=== PATIENT | female | born 2000 | race African-American/Black ===

== ENCOUNTER 2024-05-06 14:50 | Emergency (ER) | payer SELFPAY ==
[2024-05-06 14:51] VITALS: BP 107/69; PULSE 84; RESP 18; TEMP 36.4; O2SAT 100
--- NOTE | 2024-05-06 14:57 | ED.RN ---
PD dropped pt off in wheelchair, pt is sitting upright in the chair. Pt not responding to commands or answering questions. PD states pt is moving freely on her own on security cameras, but will become unresponsive when PD in room with her. pt is peeing self. Unknown past medical hx or allergies. This RN instructed medic to obtain blood sugar once pt is in room to assess for hypoglycemia.
[2024-05-06 15:02] VITALS: BMI 15.5
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
[2024-05-06 15:19] LABS: Bedside Glucose 72 mg/dL (74-106)
[2024-05-06 15:25] LABS: Absolute Lymphocyte Count 1.76 X10^3/uL (0.83-4.51); Absolute Neutrophil Count 3.5 X10^3/uL (2.0-7.7); Basophil# 0.04 X10^3/uL; Basophil% 0.7 % (0-1); Eosinophils% 1.7 % (0-5); Hematocrit 45.6 % (37-47); Hemoglobin 14.6 g/dL (12.0-15.0); Lymphocyte # 1.76 X10^3/ul (0.83-4.51); Lymphocyte % 30.4 % (19-41); Mean Corpuscular Hgb 27.4 pg (27.0-32.0); Mean Corpuscular Volume 85.6 fL (81-99); Mean Platelet Vol. 10.3 fl (6.2-12.0); Monocyte# 0.36 X10^3/uL; Monocyte% 6.2 % (0-10); NRBC Flagged by Analyzer 0 % (0-5); Neutrophil # 3.51 X10^3/uL (2.7-7.7); Neutrophil % 60.8 % (47-70); Platelet Count 281 K/mm3 (150-450); RBC Distribution Width CV 13.9 % (11.6-14.6); RBC Distribution Width SD 43.4 fl (35.1-43.9); Red Blood Count 5.33 M/mm3 (4.2-5.4); White Blood Count 5.8 K/mm3 (4.4-11.0)
[2024-05-06 15:43] LABS: Anion Gap 9 (5-15); BUN 8 mg/dL (7-18); BUN/Creat Ratio 10.9 RATIO (10-20); Calcium,Total 9.7 mg/dL (8.5-10.1); Chloride 105 mmol/L (98-107); Creatinine, Serum 0.74 mg/dL (0.55-1.02); EST Glomerular Filtration Rate 105 mL/min (>60); Est Glom Filt Rate - Afr Amer 127 mL/min (>60); Estimated Creatinine Clearance 82.96 ml/min; Glucose 82 mg/dL (74-106); Potassium 3.6 mmol/L (3.5-5.1); Sodium Level 139 mmol/L (136-145)
[2024-05-06] MEDS: Ziprasidone IM 20 MG/ML VIAL IM (16:02)
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
[2024-05-06 16:08] LABS: Alcohol, Blood (Medical)-Serum < 3.0 mg/dL
[2024-05-06 16:11] LABS: Internal QC Validated? YES +Cl - CLEAR BKGD; Pregnancy, Serum, hCG Quali. NEGATIVE Negative
[2024-05-06 17:00] VITALS: BP 105/69; PULSE 99; RESP 16; O2SAT 98
[2024-05-06] MEDS: Ondansetron 4 MG/2 ML Vial IV (17:21)
[2024-05-06] MEDS: 0.9% Normal Saline (1000mL) 1,000 ML 999 ML IV (17:22)
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
[2024-05-06 19:00] VITALS: BP 107/78; PULSE 72; RESP 20; O2SAT 98
[2024-05-06 20:30] LABS: Bacteria 0 SEEN /hpf (None Seen); Mucous, Urine 0 SEEN /hpf (<or=2+); Red Blood Cells-Urine 0 SEEN /hpf (0-5); Squamous Epithelial Cells - UA 0 SEEN /hpf (5-10); White Blood Cells 0 SEEN /hpf (0-5)
[2024-05-06 20:34] LABS: Color, Urine Yellow (Yellow); Glucose, Dipstick Normal (Normal); Ketone-Dipstick 50 mg/dl (Negative); Leukocyte Esterase-Dipstick Negative /ul (Negative); Nitrite-Dipstick Negative (Negative); Occult Blood-Urine Negative /ul (Negative); Protein-Dipstick Negative (Negative); Urine Bilirubin Dipstick Negative (Negative); Urine Clarity Clear (Clear); Urine Urobilinogen Normal (Normal)
[2024-05-06 20:46] LABS: Amphetamine Urine VISTA NEGATIVE (<1000 ng/mL); Barbiturate Urine VISTA NEGATIVE (< 200 ng/mL); Benzodiazepine Urine VISTA NEGATIVE (< 200 ng/mL); Cocaine Urine VISTA NEGATIVE (< 300 ng/mL); Ecstacy Urine VISTA NEGATIVE (< 500 ng/mL); Methadone Urine VISTA NEGATIVE (< 300 ng/mL); PCP Urine VISTA NEGATIVE (< 25 ng/mL); THC Urine VISTA NEGATIVE (< 50 ng/mL); Vista UDS pH Range 6
[2024-05-06 21:00] VITALS: BP 100/65; PULSE 72; RESP 14; O2SAT 99
--- NOTE | 2024-05-07 00:31 | ED.RN ---
Patient out at nurses station and asking this RN for AMA paperwork. This RN re-educated patient that she is pink slipped and she cannot sign out AMA. Pt asked this RN why she was pink slipped and this RN read the pink slip to her, in which patient became defensive and stated that she did not make suicidal comments earlier because she wasn't talking to anyone when she first came in. Patient then asked again for an AMA form and this RN explained again that she would not be able to leave AMA due to the pink slip. Patient proceeded to use the restroom and when coming back asked for her 3 day paperwork to sign. Informed patient that we do not have that paperwork and crisis is currently working on placement at this time.
--- NOTE | 2024-05-07 01:48 | ED.RN ---
Patients mother arrives to department very angry and demanding an update on patient. This RN got permission from patient to talk about her care to her mother. Mother demands to see documentation that is holding her daughter here, patient has copies of pink slip and they were provided to mother. Mother remains very angry, security called to triage where mother and this RN are speaking. Mother has multiple questions regarding what happened with patient prior to her getting her here, this RN referred her to ask [employer] [facility]HAEL and/or Louis whitman. Mother asks to speak with doctor on, Dr Haas spoke with mother out in triage for approx 10 minutes. Mother then asks to come back and see patient. She was let back, she immediately starts demanding that patient get food and that we are not taking care of her. This RN reminds her that all she needs to do is ask if she is hungry or thirsty and that she has been checked on multiple times without complaint. Security remains in department.
[2024-05-07 05:00] VITALS: BP 94/47; PULSE 88; RESP 14; O2SAT 98
--- NOTE | 2024-05-07 10:36 | ED.RN ---
Per Crisis, they have called [facility] 3 times with no response. They are now waiting on [facility] to call back, approve placement and tell them were to send her.
--- NOTE | 2024-05-07 11:05 | ED.RN ---
TAN IVERSON HAS FUNDING, BUT WANTS TO WAIT FOR REFERRAL TO [facility] TO COME BACK
--- NOTE | 2024-05-07 11:10 | ED.RN ---
Per Darleen at crisis patient will be referred to [facility]. [facility] has no date and time that a bed will be available. Mattie PHELPS also aware.
--- NOTE | 2024-05-07 11:24 | CASEMGMT ---
Social Work Spoke with Damion Robbins RN who reports information has been gleaned from crisis indicates recommendation for inpatient psychiatric hospitalization. Spoke with Darleen from [facility] who reports patient is self pay status, so working with [facility] on funding for placement. Per Darleen, [facility] does have indigent funding available, but is asking for referral to [facility] which is pending. Plan: Pending inpatient mental health hospitalization. -KENYATTA Crabtree
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
[2024-05-07 13:00] VITALS: BP 125/63; PULSE 91; RESP 18; TEMP 36.8; O2SAT 99
--- NOTE | 2024-05-07 13:00 | ED.RN ---
This RN enters patient room to see if patient was finished with her lunch tray. pt's mother tells this RN she needs a pen to fill out this paper since she doesn't have insurance and something to write on. this RN agrees to grab a pen and clipboard for patient. Mother then asks this rn if she can be notified of transportation because last time they lied to us and she got stuck paying for the transportation. this rn lets mother know that when possible, this rn will ask social work or crisis on possibilites for funding to cover transport. mother states understanding and states ok good, she can't afford another $4,000 bill.
--- NOTE | 2024-05-07 14:28 | ED.RN ---
Crisis center called to ask about possibly covering the cost of transport for the patient to [place]. health worker states that this rn would have to call [facility] since they are providing the funding. this rn obtains phone number from crisis center and phone call made. [phone]- [facility] crisis center worker calls back and informs this rn that she is unsure about funding for transportation since pt is currently in [facility] and not [facility]. health worker states that when the pt is considered indigent in [facility], [facility] usually covers the cost of transport with a private fund. she is not sure how this will work in [facility]. pts mother to be updated when she returns to the hospital.
--- NOTE | 2024-05-07 14:30 | CM.ED ---
Social Work This technical writer and editor, along with Ame Acharya, back to patient's room to provide Patient Advocate contact information. Patient sitting up in bed and working on financial sales assistant application for hospital. Asked patient if patient would like the information, or whether patient would like this technical writer and editor to give information to patient's mother Linda. Patient directed information to be given to Linda. Linda observed telling patient that patient should call. Patient made comment that does not have a phone to use. Linda informed patient that patient can use the phone if patient wants to, though patient did not ask or voice interest to use a phone to call the advocate. This technical writer and editor inquired whether patient would like assist with medicaid application through [facility] representative phlebotomy services. Patient initially indicated that did not know, and then asked what the repercussions would be if did not apply for Medicaid or for the hospital assistance program. Linda made comment about patient being a full-time college student with limited income. Explained it is patient's right to apply or not, but applying could offer support for bills. Linda informed patient that bills could go to [employer], and this won't be on patient's credit bureau. Linda also made comment about how [employer] is giving others money, so patient should take advantage too. After some thought patient reported that would talk with [facility] [employer] if available tomorrow, but not at the detriment of holding up transfer to next hospital. This technical writer and editor did attempt to engage patient in conversation, as Linda made comments about patient being in college and knowing different languages (multiple languages due to family being overseas for the ). When this technical writer and editor asked patient what patient is majoring in the patient stated no. This technical writer and editor clarified that does this mean patient does not have a major. Patient looked at Linda, and Linda made comment to patient that okay to tell SW as it is not like SW would be calling [employer]. This technical writer and editor confirmed would not be calling the [employer]. Patient made comment don't trust you, so did not answer question about major. Gently let patient know that it is okay to say that don't want to talk, or not want to answer rather than saying no when asked something that patient does know. Note, during this interaction, Linda initiated conversation back to attempt at urine catheter for patient yesterday, as well as comments about knowing when patient is being recorded or not and that video footage will be disappearing. Linda commented that as a security police it is common to lie when recording is happening. After addressing the patient advocate and Medicaid application, no other additional needs identified to be addressed at this time with patient. Patient did give this technical writer and editor completed hospital assistance application which this technical writer and editor handed off to Lennie FERNANDO. Secure message to [facility] Patient Advocate regarding this patient and to check in with patient if still here during Advocate's working hours. Secure message to Mi at [facility] [employer] regarding assistance for Medicaid application. This technical writer and editor checked in with nursing and still waiting on bed availability at [facility]. This technical writer and editor obtained number for [facility] in [place], , as this technical writer and editor looking to see if any possible alternative placement could be secured for patient, rather than unknown wait time with [facility]. Plan: Pending inpatient mental health placement. -KENYATTA Crabtree
--- NOTE | 2024-05-07 17:40 | CM.ED ---
Social Work Called [facility] at [phone] and left message with answering service to call this contract writer back. Received call back from Suha Torres who was able to answer and clarify this contract writer's questions. Suha reports [facility] gave authorization for referral to [facility], and that if patient is not placed at [facility] by Wednesday05-08-2024 then [facility] would re-revaluate whether an alternate hospital could be looked at, depending on what the outcome of the referral to [facility] shows. As far as covering cost of transportation, Suha was not aware about covering cost of transport. Suha reports Seferino from [facility] in [place] was to send referral over to [facility]. Plan: Pending referral at [facility] though destination could be under reconsideration tomorrow. -KENYATTA Crabtree
--- NOTE | 2024-05-07 20:55 | ED.RN ---
this rn's presence requested in pt's room to talk to mother. she is requesting all written records and the [id number] paperwork of everything that's been done. also requested the name of the charge nurse upon pt's arrival and the name of the nurses that straight cath'd her on the day of arrival. all questions answered. advised pt's mother that I was unsure of the policy about what written documentation we are able to provide vs medical record, but I would get back to her when I had that information.
[2024-05-07 21:00] VITALS: BP 106/73; PULSE 97; RESP 18; O2SAT 96
--- NOTE | 2024-05-07 21:14 | ED.RN ---
pt's mother now aware that all written records must be obtained through medical records.
--- NOTE | 2024-05-07 22:17 | CM.ED ---
Social Work Spoke with Darleen Heredia at [facility] Crisis department about 24 hour update assessment. Updated Darleen that this handbook writer has been into the room today to speak with patient and mother, listening to concerns, and offering resources. Updated Darleen that patient not communicating much during interactions with social worker palliative care today, expressed not trusting this handbook writer, and the mother has done most of the talking. Plan: Pending inpatient hospitalization. Crisis will be back in for daily update/determination of need for continued plan. -KENYATTA Crabtree
--- NOTE | 2024-05-07 22:31 | ED.RN ---
2114 offered pt and mother beverages and/or snack. both refused at this time. mother asked questions re: law enforcement protocols and this rn advised her that I did not have knowledge of their procedures. 2199 offered to provide pt with bath wipes to clean up. pt refused at this time.
--- NOTE | 2024-05-07 23:03 | ED.RN ---
Crisis at bedside for 24 hour re-evaluation
--- NOTE | 2024-05-08 01:18 | ED.RN ---
mother arrives at bedside to speak with crisis
[2024-05-08 02:14] VITALS: BP 110/76; PULSE 104; RESP 20; TEMP 36.6; O2SAT 96
--- NOTE | 2024-05-08 02:16 | ED.RN ---
d/c instructions reviewed with mother and pt in room. per previous conversations with mother, she took all of pt's belongings home. pt leaves in hospital gown with safety plan and discharge paper in hand.
== END 2024-05-08 02:18 | disposition home or self-care (01) ==
PROVIDERS: Physician Assistant; Emergency Provider Emergency Medicine; Visit Provider Emergency Medicine
DX: R45.851 Suicidal ideations (principal); R45.6 Violent behavior
CPT/HCPCS: 80048; 80307; 80320; 81001; 82962; 84703; 85025; 96361; 96372; 96374; 99285; J7030; A4216; G0480; J2405